=== PATIENT | male | born 1965 | race Caucasian/White ===

== ENCOUNTER 2022-04-18 19:43 | Outpatient (CLI) | payer BC, SELFPAY | END 2022-04-18 19:44 | disposition home or self-care (01) | LOC: SLEEP 19:43 | PROVIDERS: Visit Provider Otolaryngology | DX: G47.33 Obstructive sleep apnea (adult) (pediatric) (principal) | CPT/HCPCS: 95806 ==

== ENCOUNTER 2022-05-02 19:52 | Outpatient (CLI) | payer BC, SELFPAY ==
--- NOTE | 2022-05-23 08:42 | W.PM.SLEEP ---
Sleep Study Details Details Interpreting Provider: Luis Angel Date of Sleep Study: 05/02/22 Sleep Study Details: STUDY TYPE:? Home ? BMI:? Not recorded ORDERING PROVIDER:? Luis Angel INDICATION:? Concerns about sleep apnea ? SLEEP SUMMARY:? 466 minutes monitor RESPIRATORY SUMMARY:? AHI 10.9, supine 13.5, left lateral 17, right lateral 4.4 Low oxygen 89 Snoring 14.5% PERIODIC LIMB MOVEMENTS OF SLEEP:? Not recorded CARDIAC:? Range 59-95, mean 72 IMPRESSION:? Mild obstructive sleep apnea. Treatment options would include positional therapy with patient's sleeping on right side, AutoSet CPAP dental appliance and/or airway expansion surgery. RECOMMENDATION: []
== END 2022-05-02 19:53 | disposition home or self-care (01) ==
LOC: SLEEP 19:53
PROVIDERS: Visit Provider Otolaryngology
DX: G47.33 Obstructive sleep apnea (adult) (pediatric) (principal)
CPT/HCPCS: 95806